=== PATIENT | female | born 1950 | race Caucasian/White ===

== ENCOUNTER 2016-11-15 21:29 | Inpatient (IN) | payer MEDICARE ==
[~2016-11-15] VITALS: Ht 165.1 cm; Wt 75.4 kg
[2016-11-15 21:29] VITALS: O2SAT 99
[2016-11-15] MEDS ORDERED: PROPOFOL 200 MG/20 ML AMP ONE (21:37)
[2016-11-15 21:59] LABS: AUTOMATED NEUTROPHIL # 2.9 TH/MM3 (1.8-7.7); BASOPHIL # 0.1 TH/MM3 (0-0.2); BASOPHIL % 1.2 % (0.0-2.0); EOSINOPHIL # 0.5 TH/MM3 (0-0.4); EOSINOPHIL % 9.3 % (0.0-4.0); HEMATOCRIT 32.1 % (35.0-46.0); HEMO FLAGS DIFF FINAL; LYMPHOCYTE # 1.6 TH/MM3 (1.0-4.8); MEAN CELL VOLUME 86.3 FL (80.0-100.0); MEAN CORPUSCULAR HEMOGLOBIN 26.8 PG (27.0-34.0); MEAN CORPUSCULAR HGB CONC 31.1 % (32.0-36.0); NEUT % 51.5 % (16.0-70.0); PLATELET COUNT 283 TH/MM3 (150-450); RED BLOOD COUNT 3.72 MIL/MM3 (4.00-5.30); RED CELL DISTRIBUTION WIDTH 20.3 % (11.6-17.2); WHITE BLOOD COUNT 5.6 TH/MM3 (4.0-11.0)
[2016-11-15] MEDS ORDERED: SODIUM CHLOR 0.9% 1000 ML INJ 1,000 ML IV SCH (22:08)
[2016-11-15 22:10] LABS: I-STAT POTASSIUM 3.8 MMOL/L (3.5-4.9)
[2016-11-15] MEDS ORDERED: ONDANSETRON HCL 4 MG/2 ML VIAL IV PRN (22:15)
[2016-11-15] MEDS ORDERED: Post-op Orders (for Pharmacy) MISC XX ONE (22:15)
[2016-11-15] MEDS ORDERED: NALOXONE HCL 0.4 MG/ML AMP IV PRN (22:15)
[2016-11-15] MEDS ORDERED: SODIUM CHLORIDE 0.9% FLUSH 10 ML FLUSH IV FLUSH PRN (22:15)
[2016-11-15] MEDS ORDERED: MORPHINE SULFATE 4 MG/ML INJ IV PRN (22:15)
--- NOTE | 2016-11-15 22:23 | PD ---
HPI Chief Complaint: Trauma (Alert) Time Seen by Provider: 21:40 Travel History International Travel<30 days: No Contact w/Intl Traveler<30days: No History of Present Illness HPI The patient is 62 years old. She arrives to the ER as a trauma alert. She fell from a step stool and her house following about 2 feet landing on the left side causing sudden onset severe pain in the left wrist and in the left hip. EMS on scene saw deformity which was immobilized. Therefore vital signs on scene is 150/80, heart rate 54, respiratory rate 24 with a blood sugar of 131. In the ER the patient complains of pain in the left forearm and pain in the left hip. She reports a history of palpitations, insomnia, GBP, anemia. She notes taking her Lortab, Klonopin and Keppra earlier in the evening. She also notes IM methotrexate once weekly, however is not sure of its specific indication. Allergies-Medications (Allergen,Severity, Reaction): Coded Allergies: No Known Allergies (Unverified , 11/16/16) Reported Meds & Prescriptions Reported Meds & Active Scripts Active Reported Ambien (Zolpidem Tartrate) 10 Mg Tab 10 Mg PO HS PRN Singulair (Montelukast Sodium) 10 Mg Tab 10 Mg PO DAILY Lortab (Hydrocodone-Acetaminophen) 10-325 Mg Tab 1 Tab PO TID PRN Cymbalta DR (Duloxetine HCl) 60 Mg Capdr 60 Mg PO DAILY Keppra (Levetiracetam) 500 Mg Tab 500 Mg PO BID Propranolol (Propranolol HCl) 20 Mg Tab 20 Mg PO BID Multi Vitamin (Multiple Vitamin) 1 Tab Tab 1 Tab PO DAILY Folate (Folic Acid) 1 Mg Tab 1 Mg PO SUMOTUWEFRSA Otrexup Inj (Methotrexate Inj) 7.5 Mg/0.4 Ml Inj 2.5 Mg IM WEEKLY ON THURSDAYS Omeprazole 20 Mg Tab 20 Mg PO BID Clonazepam 1 Mg Tab 1 Mg PO TID Review of Systems ROS Limitations: Clinical Condition Physical Exam Narrative GENERAL: 66 yo F, WNWD, moderate distress SKIN: Warm and dry. HEAD: Atraumatic. Normocephalic. EYES: Pupils equal and round. No scleral icterus. No injection or drainage. ENT: No nasal bleeding or discharge. Mucous membranes pink and moist. NECK: Trachea midline. No JVD. CARDIOVASCULAR: Regular rate and rhythm. RESPIRATORY: No accessory muscle use. Clear to auscultation. Breath sounds equal bilaterally. GASTROINTESTINAL: Abdomen soft, non-tender, nondistended. Hepatic and splenic margins not palpable. MUSCULOSKELETAL: Extremities without clubbing, cyanosis, or edema. Deformity of the left wrist concerning for distal radius fracture. The left lower extremity is externally rotated with TTP. 2+ DP bilaterally. 2+ radial artery pulses bilaterally. NEUROLOGICAL: Awake and alert. No obvious cranial nerve deficits. Motor grossly within normal limits. Extremity exam limited by trauma. Normal speech. PSYCHIATRIC: Reasonably cooperative. Data Data Last Documented VS Vital Signs Date Time Temp Pulse Resp B/P Pulse Ox O2 Delivery O2 Flow Rate FiO2 11/15/16 21:29 99 15.00 100 Orders Propofol 200 Mg/20 Ml Inj (Diprivan 200 (11/15/16 21:37) I-Stat Profile (11/15/16 21:40) I-Stat Creatinine (11/15/16 21:40) Complete Blood Count With Diff (11/15/16 21:40) Prothrombin Time / Inr (Pt) (11/15/16 21:40) Act Partial Throm Time (Ptt) (11/15/16 21:40) Type And Screen (11/15/16 21:40) Chest, Single Ap (11/15/16 21:40) Pelvis, Ap Only (Routine) (11/15/16 21:40) Iv Access Insert/Monitor (11/15/16 21:40) Ecg Monitoring (11/15/16 21:40) Oximetry (11/15/16 21:40) Oxygen Administration (11/15/16 21:40) Wrist, Limited (Ap&Lat) (11/15/16 ) Femur (Ap & Lat/2vws) (11/15/16 ) Wrist, Limited (Ap&Lat) (11/15/16 ) Elbow, One View (11/15/16 ) Admit To Inpatient (11/15/16 ) Code Status (11/15/16 22:08) Vital Signs (Adult) Q4H (11/15/16 22:08) Activity Bed Rest (11/15/16 22:08) Diet Npo (11/16/16 Breakfast) Sodium Chlor 0.9% 1000 Ml Inj (Ns 1000 M (11/15/16 22:08) Sodium Chloride 0.9% Flush (Ns Flush) (11/15/16 22:15) Sodium Chloride 0.9% Flush (Ns Flush) (11/16/16 09:00) Ondansetron Inj (Zofran Inj) (11/15/16 22:15) Pantoprazole Inj (Protonix Inj) (11/15/16 22:15) Basic Metabolic Panel (Bmp) (11/16/16 06:00) Complete Blood Count With Diff (11/16/16 06:00) Resp Incentive Spirometry (11/15/16 ) Consult Hospitalist (11/15/16 ) Post-Op Orders (For Pharmacy) (Post-Op O (11/15/16 22:15) Morphine Inj (Morphine Inj) (11/15/16 22:15) Naloxone Inj (Narcan Inj) (11/15/16 22:15) Inpatient Certification (11/15/16 ) Consult Orthopedic (11/15/16 ) Sling Cradle Arm (11/15/16 ) Fiberglass Sugartong Sp Ad Arm (11/15/16 ) Immobilizer Knee 20 Inch (11/15/16 ) Admit Order (Ed Use Only) (11/15/16 22:20) Labs Laboratory Tests Test 11/15/16 21:38 White Blood Count 5.6 TH/MM3 Red Blood Count 3.72 MIL/MM3 Hemoglobin 10.0 GM/DL Bedside Hemoglobin 10.5 G/DL Hematocrit 32.1 % Bedside Hematocrit 31.0 % Mean Corpuscular Volume 86.3 FL Mean Corpuscular Hemoglobin 26.8 PG Mean Corpuscular Hemoglobin 31.1 % Concent Red Cell Distribution Width 20.3 % Platelet Count 283 TH/MM3 Mean Platelet Volume 8.2 FL Neutrophils (%) (Auto) 51.5 % Lymphocytes (%) (Auto) 29.0 % Monocytes (%) (Auto) 9.0 % Eosinophils (%) (Auto) 9.3 % Basophils (%) (Auto) 1.2 % Neutrophils # (Auto) 2.9 TH/MM3 Lymphocytes # (Auto) 1.6 TH/MM3 Monocytes # (Auto) 0.5 TH/MM3 Eosinophils # (Auto) 0.5 TH/MM3 Basophils # (Auto) 0.1 TH/MM3 CBC Comment DIFF FINAL Differential Comment Prothrombin Time 11.1 SEC Prothromb Time International 1.0 RATIO Ratio Activated Partial 23.4 SEC Thromboplast Time Bedside Sodium 143 MMOL/L Bedside Potassium 3.8 MMOL/L Bedside Chloride 108 MMOL/L Bedside Blood Urea Nitrogen 19 MG/DL Bedside Creatinine 0.8 MG/DL Bedside Glucose 103 MG/DL Blood Type AB POSITIVE Antibody Screen NEGATIVE [facility] Medical Screen Exam Complete: Yes Emergency Medical Condition: Yes Differential Diagnosis Rib fracture, pneumothorax, wrist fracture, femur fracture, humerus fracture Narrative Course CBC & BMP Diagram 11/15/16 21:38 POC electrolytes are normal Last 24 hours Impressions Pelvis X-Ray 11/15/162139 Signed Impressions: Service Date/Time: Tuesday, November 15, 2016 21:23 - CONCLUSION: Intact pelvis. Aman Avendano MD Chest X-Ray 11/15/162139 Signed Impressions: Service Date/Time: Tuesday, November 15, 2016 21:23 - CONCLUSION: No evidence of acute cardiopulmonary disease. Aman Avendano MD Wrist X-Ray 11/15/16 0000 Signed Impressions: Service Date/Time: Tuesday, November 15, 2016 21:23 - CONCLUSION: Comminuted, impacted and mild dorsal angulated intra-articular fracture of the distal left radius. Aman Avendano MD Wrist X-Ray 11/15/16 0000 Signed Impressions: Service Date/Time: Tuesday, November 15, 2016 21:23 - CONCLUSION: Comminuted, impacted intra-articular fracture of the distal left radius with dorsal displacement and angulation deformity. Aman Avendano MD Femur X-Ray 11/15/16 0000 Signed Impressions: Service Date/Time: Tuesday, November 15, 2016 21:23 - CONCLUSION: Comminuted minimally displaced intertrochanteric fracture. Aman Avendano MD Elbow X-Ray 11/15/16 0000 Signed Impressions: Service Date/Time: Tuesday, November 15, 2016 21:23 - CONCLUSION: Nondisplaced fracture of the distal humerus not excludable. Dedicated complete elbow x-ray series recommended when clinically feasible. Aman Avendano MD Patient reassessed in the echo pod following trauma bay evaluation. She remains hemodynamically stable. She'll be admitted to the trauma surgery service. The son does not recall the doses of the medications the patient takes hour she reports following from memory: Dirk Dodge, Rebecca, Keppra, methotrexate IM once weekly, B12 and iron, propranolol. Case discussed with Dr. Locke of orthopedic surgery who requests nothing by mouth status. Procedures Procedure Narrative After the risks and benefits were discussed the following procedure was performed: MODERATE SEDATION: The patient was placed on a roll up guider operator and pulse oximetry. An ambu bag and suction was immediately available at bedside. The patient was monitored by the nurse. Oxygen saturation , heart rate and blood pressure were monitored. Procedural sedation was acheived using propofol. The patient was observed until awake and alert. Procedural Sedation time in attendance was 15 minutes. CLOSED REDUCTION L DISTAL RADIUS FRACTURE: Traction countertraction applied. 2+ radial artery before and after. Sugar tong applied. Post reduction film with improved alignment. Trauma Alert - Level One Time Surgeon Summoned: 21:22 Diagnosis Diagnosis: Primary Impression: Intertrochanteric fracture of left hip Qualified Code: S72.142A - Intertrochanteric fracture of left hip, closed, initial encounter Additional Impression: Distal radius fracture, left Qualified Code: S52.502A - Closed fracture of distal end of left radius, unspecified fracture morphology, initial encounter Admitting Physician Requests: Admit Landon Tucker MD November 15, 2016 22:22
--- NOTE | 2016-11-15 22:25 | RADRPT ---
EXAM DATE/TIME: 11/15/2016 21:23 [facility] COMPARISON: No previous studies available for comparison. INDICATIONS : Trauma alert. Fall onto concrete. Post reduction. MEDICAL HISTORY : None. SURGICAL HISTORY : None. ENCOUNTER: Initial ACUITY: 1 day PAIN SCORE: Non-responsive. LOCATION: Left wrist. FINDINGS: There is a comminuted, impacted intra-articular fracture of the distal left radius. Mild dorsal angul ation deformity and a few millimeters of lateral displacement noted. Carpal bones appear intact and n ormally aligned. There is potentially a minimally displaced fracture of the ulnar styloid. CONCLUSION: Comminuted, impacted and mild dorsal angulated intra-articular fracture of the distal left radius. Aman Avendano MD on November 15, 2016 at 22:23 Board Certified Radiologist. This report was verified electronically.
--- NOTE | 2016-11-15 22:25 | RADRPT ---
EXAM DATE/TIME: 11/15/2016 21:23 [facility] COMPARISON: No previous studies available for comparison. INDICATIONS : Trauma alert. Fall onto concrete. MEDICAL HISTORY : None. SURGICAL HISTORY : None. ENCOUNTER: Initial ACUITY: 1 day PAIN SCORE: Non-responsive. LOCATION: Bilateral chest FINDINGS: A single view of the chest demonstrates the lungs to be symmetrically aerated without evidence of mas s, infiltrate or effusion. The cardiomediastinal contours are unremarkable. Osseous structures are intact. CONCLUSION: No evidence of acute cardiopulmonary disease. Aman Avendano MD on November 15, 2016 at 22:24 Board Certified Radiologist. This report was verified electronically.
--- NOTE | 2016-11-15 22:27 | RADRPT ---
EXAM DATE/TIME: 11/15/2016 21:23 [facility] COMPARISON: No previous studies available for comparison. INDICATIONS : Trauma alert. Fall onto concrete. MEDICAL HISTORY : None. SURGICAL HISTORY : None. ENCOUNTER: Initial ACUITY: 1 day PAIN SCORE: Non-responsive. LOCATION: Left elbow. FINDINGS: A single view was obtained. There is a potential nondisplaced condylar fracture of the distal humerus . Grossly, proximal radius and ulna appear intact. CONCLUSION: Nondisplaced fracture of the distal humerus not excludable. Dedicated complete elbow x-ray series rec ommended when clinically feasible. Aman Avendano MD on November 15, 2016 at 22:24 Board Certified Radiologist. This report was verified electronically.
--- NOTE | 2016-11-15 22:28 | RADRPT ---
EXAM DATE/TIME: 11/15/2016 21:23 [facility] COMPARISON: No previous studies available for comparison. INDICATIONS : Trauma alert. Fall onto concrete. MEDICAL HISTORY : None. SURGICAL HISTORY : None. ENCOUNTER: Initial ACUITY: 1 day PAIN SCORE: Non-responsive. LOCATION: Bilateral pelvis FINDINGS: A single frontal view of the pelvis demonstrates no evidence of fracture. The bony pelvic ring is in tact. Bony mineralization is normal. The soft tissues are intact. CONCLUSION: Intact pelvis. Aman Avendano MD on November 15, 2016 at 22:26 Board Certified Radiologist. This report was verified electronically.
--- NOTE | 2016-11-15 22:29 | RADRPT ---
EXAM DATE/TIME: 11/15/2016 21:23 [facility] COMPARISON: No previous studies available for comparison. INDICATIONS : Trauma alert. Fall onto concrete. MEDICAL HISTORY : None. SURGICAL HISTORY : None. ENCOUNTER: Initial ACUITY: 1 day PAIN SCORE: Non-responsive. LOCATION: Left wrist. FINDINGS: Very comminuted, impacted and dorsally displaced and angulated fracture seen of the distal left radiu s. There is a minimally displaced fracture of the ulnar styloid. Carpal bones appear intact. CONCLUSION: Comminuted, impacted intra-articular fracture of the distal left radius with dorsal displacement and angulation deformity. Aman Avendano MD on November 15, 2016 at 22:27 Board Certified Radiologist. This report was verified electronically.
--- NOTE | 2016-11-15 22:30 | RADRPT ---
EXAM DATE/TIME: 11/15/2016 21:23 [facility] COMPARISON: No previous studies available for comparison. INDICATIONS : Trauma alert. Fall onto concrete. MEDICAL HISTORY : None. SURGICAL HISTORY : None. ENCOUNTER: Initial ACUITY: 1 day PAIN SCORE: Non-responsive. LOCATION: Left femur. FINDINGS: Very comminuted but minimally displaced fracture seen in the intertrochanteric region of the left fem ur. Femoral head is intact. No subluxation. CONCLUSION: Comminuted minimally displaced intertrochanteric fracture. Aman Avendano MD on November 15, 2016 at 22:28 Board Certified Radiologist. This report was verified electronically.
[2016-11-15 22:33] LABS: APTT (PATIENT) 23.4 SEC (24.3-30.1); PROTHROMBIN TIME - PATIENT 11.1 SEC (9.8-11.6)
[2016-11-15] MEDS ORDERED: [UNRECOGNIZED DRUG - CODE] IM (23:26)
[2016-11-15] MEDS ORDERED: CLON1TAB PO (23:26)
[2016-11-15] MEDS ORDERED: OMEP20TA PO (23:26)
[2016-11-15] MEDS ORDERED: FOLI1TAB4 PO (23:26)
[2016-11-15] MEDS ORDERED: MULT-135 PO (23:27)
[2016-11-15] MEDS ORDERED: HYDR-3535 PO (23:44)
[2016-11-15] MEDS ORDERED: LEVE500 PO (23:44)
[2016-11-15] MEDS ORDERED: AMBI10TA PO (23:44)
[2016-11-15] MEDS ORDERED: MONT10TA2 PO (23:44)
[2016-11-15] MEDS ORDERED: CYMB60CA PO (23:44)
[2016-11-15] MEDS ORDERED: PROP20TA3 PO (23:44)
[2016-11-16] VITALS (8 sets, daily range): BP systolic 129–174; BP diastolic 75–99; PULSE 61–77; RESP 17–19; TEMP 95.5–99.6; O2SAT 97–100
[2016-11-16] MEDS ORDERED: INSULIN HUMAN REGULAR 1,000 UNITS/10 ML VIAL SQ PRN (01:15)
[2016-11-16] MEDS ORDERED: CHLORHEXIDINE GLUCONATE 2 % 1 PACK (2 CLOTHS) TOPICAL PRN (01:15)
[2016-11-16] MEDS ORDERED: METOPROLOL TARTRATE 25 MG TAB PO PRN (01:15)
[2016-11-16] MEDS ORDERED: LACTATED RINGER'S 1000 ML IV PRN (01:15)
[2016-11-16] MEDS ORDERED: POVIDONE IODINE 5% (ANTISEPSIS KIT) 4 APPLICATIONS EACH NARE PRN (01:15)
[2016-11-16 05:29] LABS: AUTOMATED NEUTROPHIL # 5.2 TH/MM3 (1.8-7.7); BASOPHIL # 0.1 TH/MM3 (0-0.2); BASOPHIL % 0.8 % (0.0-2.0); EOSINOPHIL # 0.2 TH/MM3 (0-0.4); EOSINOPHIL % 2.6 % (0.0-4.0); HEMATOCRIT 29.1 % (35.0-46.0); HEMO FLAGS DIFF FINAL; LYMPH % 17.4 % (9.0-44.0); LYMPHOCYTE # 1.3 TH/MM3 (1.0-4.8); MEAN CELL VOLUME 84.9 FL (80.0-100.0); MEAN CORPUSCULAR HEMOGLOBIN 29.2 PG (27.0-34.0); MEAN CORPUSCULAR HGB CONC 34.4 % (32.0-36.0); MONO % 8.1 % (0.0-8.0); NEUT % 71.1 % (16.0-70.0); PLATELET COUNT 277 TH/MM3 (150-450); RED BLOOD COUNT 3.42 MIL/MM3 (4.00-5.30); RED CELL DISTRIBUTION WIDTH 20.4 % (11.6-17.2); WHITE BLOOD COUNT 7.4 TH/MM3 (4.0-11.0)
[2016-11-16 05:38] LABS: BICARBONATE 24.9 MEQ/L (21.0-32.0)
[2016-11-16] MEDS ORDERED: GENTAMICIN SULFATE 80 MG/2 ML VIAL ONE ×2 (08:51→09:49)
[2016-11-16] MEDS ORDERED: BUPIVACAINE/EPINEPHRINE 0.25% PF 30 ML VIAL ONE (08:56)
[2016-11-16] MEDS ORDERED: BUPIVACAINE/EPINEPHRINE 0.25% 50 ML VIAL ONE (08:56)
[2016-11-16] MEDS ORDERED: DOCUSATE SODIUM 100 MG CAP PO SCH (09:00)
--- NOTE | 2016-11-16 09:06 | MB ---
cc: MIRIAM JOSHUA DATE OF CONSULTATION: 11/16/2016 REASON FOR CONSULTATION: Left distal radius fracture Left hip fracture. HISTORY The patient is 62-year-old female brought to the emergency room [facility] Trauma alert patient. She fell off a step stool in her house, landing on left thigh with severe onset of sudden pain left hip, left wrist. 911 was called, Emergency Medical Services at the scene saw a deformity of both areas and she was immobilized. She was taken [facility] and she was severe pain in both areas with any movement or attempted weightbearing exacerbates the symptoms of both left wrist and left hip region. She did report palpitations. She denies numbness, tingling. She had x-rays performed. DIAGNOSIS Left distal radius fracture, left intertrochanteric hip fracture with the surgery consulted and the medical service. PAST MEDICAL HISTORY: The patient has past medical history of rheumatoid arthritis. Seizure disorder. History of gastric bypass. ALLERGIES NO KNOWN DRUG ALLERGIES MEDICATIONS Medications include 1. Methotrexate 2. Ambien 3. Singulair. 4. Lortab 5. Cymbalta 6. Keppra 7. Propranolol 8. Multivitamin. 9. Omeprazole. 10. Clonazepam SOCIAL HISTORY: nonsmoker, nondrinker. REVIEW OF SYSTEMS Negative for 12 systems other than HPI. FAMILY HISTORY: Noncontributory. PHYSICAL EXAMINATION: IN GENERAL: The patient is awake and alert lying in bed, no acute distress currently. HEAD, EYES, EARS, NOSE, AND THROAT: Normocephalic, atraumatic. Pupils round, extraocular muscles intact. NECK: The neck is supple. LUNGS: Clear. HEART: Regular rate and rhythm. ABDOMEN: The abdomen is soft, nontender. SKIN: Warm and dry. EXTREMITIES: Left upper extremities currently splinted. She has pain, swelling of left wrist tenderness in this region. She flexes her digits with pain limitation regards to her condition. The patient left hip. She has shortening and external rotation. She can passive flex her ankle distally, she has pain with any passive motion of the left hip. LABORATORY FINDINGS: White blood cell count 5.6, hemoglobin is ten, hematocrit is 32, RADIOLOGIC: X-rays of the left wrist shows a comminuted displaced intra-articular impacted distal radius fracture. X-rays of the left hip shows comminuted displaced intertrochanteric hip fracture. IMPRESSION 62-year-old female status post fall from a height left intertrochanteric hip fracture left distal wrist fracture. PLAN Discussed diagnosis and treatment options, we will go over the option of nonoperative treatment versus surgery. Surgery consists of open reduction internal fixation of both the left hip and left wrist. The risk of surgery discussed including but no limited to infection, damage to blood vessels, pain, failure of hardware, blood clots, pulmonary embolism and . The patient's pain is severe. She favored benefits of the risks, it does wish to proceed with surgery. A written consent will be obtained, the surgical sites have been marked and we will proceed with surgery accordingly. MD SERAFIN Vega/patti /7:57 AM /8:58 AM
[2016-11-16] MEDS ORDERED: VANCOMYCIN HCL 1000 MG VIAL ONE (09:49)
[2016-11-16] MEDS ORDERED: ceFAZolin 2 GM PREMIX 50 ML ONE (09:49)
[2016-11-16] MEDS ORDERED: ONDANSETRON HCL 4 MG/2 ML VIAL IV PUSH ONE (09:54)
[2016-11-16] MEDS ORDERED: NEOSTIGMINE 3 MG/3 ML SYR IV ONE (09:54)
[2016-11-16] MEDS ORDERED: PROPOFOL 200 MG/20 ML AMP IV ONE (09:54)
[2016-11-16] MEDS ORDERED: SODIUM CHLOR 0.9% 250 ML INJ 250 ML IV ONE (09:55)
--- NOTE | 2016-11-16 09:58 | HHI.PR ---
Subjective Subjective Notes PTD: 1 1030: In OR 1200: In OR / PACU 1445: Back from OR - sleepy and groggy post OR. Objective Vitals/I&O Vital Signs Date Time Temp Pulse Resp B/P Pulse Ox O2 Delivery O2 Flow Rate FiO2 11/16/16 04:00 98.3 74 17 135/75 98 11/15/16 21:29 15.00 100 Labs Laboratory Tests Test 11/15/16 11/16/16 21:38 03:52 White Blood Count 5.6 7.4 Red Blood Count 3.72 3.42 Hemoglobin 10.0 10.0 Bedside Hemoglobin 10.5 Hematocrit 32.1 29.1 Bedside Hematocrit 31.0 Mean Corpuscular Volume 86.3 84.9 Mean Corpuscular Hemoglobin 26.8 29.2 Mean Corpuscular Hemoglobin 31.1 34.4 Concent Red Cell Distribution Width 20.3 20.4 Platelet Count 283 277 Mean Platelet Volume 8.2 8.3 Neutrophils (%) (Auto) 51.5 71.1 Lymphocytes (%) (Auto) 29.0 17.4 Monocytes (%) (Auto) 9.0 8.1 Eosinophils (%) (Auto) 9.3 2.6 Basophils (%) (Auto) 1.2 0.8 Neutrophils # (Auto) 2.9 5.2 Lymphocytes # (Auto) 1.6 1.3 Monocytes # (Auto) 0.5 0.6 Eosinophils # (Auto) 0.5 0.2 Basophils # (Auto) 0.1 0.1 CBC Comment DIFF FINAL DIFF FINAL Differential Comment Prothrombin Time 11.1 Prothromb Time International 1.0 Ratio Activated Partial 23.4 Thromboplast Time Bedside Sodium 143 Bedside Potassium 3.8 Bedside Chloride 108 Bedside Blood Urea Nitrogen 19 Bedside Creatinine 0.8 Bedside Glucose 103 Blood Type AB POSITIVE Antibody Screen NEGATIVE Sodium Level 145 Potassium Level 4.0 Chloride Level 111 Carbon Dioxide Level 24.9 Anion Gap 9 Blood Urea Nitrogen 13 Creatinine 0.57 Estimat Glomerular Filtration 91 Rate Random Glucose 100 Calcium Level 8.2 Radiology Last Impressions Pelvis X-Ray 11/15/162139 Signed Impressions: Service Date/Time: Tuesday, November 15, 2016 21:23 - CONCLUSION: Intact pelvis. Aman Avendano MD Chest X-Ray 11/15/162139 Signed Impressions: Service Date/Time: Tuesday, November 15, 2016 21:23 - CONCLUSION: No evidence of acute cardiopulmonary disease. Aman Avendano MD Wrist X-Ray 11/15/16 0000 Signed Impressions: Service Date/Time: Tuesday, November 15, 2016 21:23 - CONCLUSION: Comminuted, impacted and mild dorsal angulated intra-articular fracture of the distal left radius. Aman Avendano MD Femur X-Ray 11/15/16 0000 Signed Impressions: Service Date/Time: Tuesday, November 15, 2016 21:23 - CONCLUSION: Comminuted minimally displaced intertrochanteric fracture. Aman Avendano MD Elbow X-Ray 11/15/16 0000 Signed Impressions: Service Date/Time: Tuesday, November 15, 2016 21:23 - CONCLUSION: Nondisplaced fracture of the distal humerus not excludable. Dedicated complete elbow x-ray series recommended when clinically feasible. Aman Avendano MD Narrative Exam GENERAL: This is a 70 year old female just back from OR and still sleepy. SKIN: Warm and dry. HEAD: Atraumatic. Normocephalic. EYES: PERRLA ENT: No nasal bleeding or discharge. Mucous membranes pink and moist. NECK: Trachea midline. No JVD. CARDIOVASCULAR: Regular rate and rhythm. RESPIRATORY: No accessory muscle use. Lungs are clear to auscultation. Breath sounds equal bilaterally. No distress or dyspnea. GASTROINTESTINAL: BS + x 4 quads. Abdomen soft, non-tender, nondistended. MUSCULOSKELETAL: Extremities without cyanosis, or edema. LEFT arm dressing in place and arm in sling for support/comfort. + peripheral pulses x 4 extremities. Warm with good capillary refill and sensation. MAEW. LEFT outer hip/thigh dressing in place CDI. NEUROLOGICAL: Drowsy post OR A/P Problem List: (1) Distal radius fracture, left (2) Intertrochanteric fracture of left hip Assessment and Plan RESIGHINI: This is a 62 year old female who sustained a fall from a stepstool of approximately 2 feet. She landed on her left side. PMHx: Palpitations, HTN. insomnia, anemia, Smoker INJURIES: Left radius fracture Left femur fracture Procedures: 11/15: Closed reduction of distal radius in ED 11/16: ORIF left radius; ORIF IM nail left femur Consults: Orthopedics.HEPAS. Diet: Regular diet. Tolerating po diet. Encourage good po intake with each meal. Pulmonary: Encourage good pulmonary toileting. IS at bedside and pt encouraged to use. Rationale for use explained to patient, and verbalized understanding. Resume home medications. Labs in the morning. PAIN Management: [place] 7.5-15 po. Dilaudid PRN breakthrough pain. Morphine IV Activity: BR. PT and OT ordered. GI prophylaxis: Protonix IV Bowel regimen: Lexie-colace and MOM. LBM: 0 DVT prophylaxis: Mechanical VTE with SCDs. Chemical management with Lovenox 30 q day. DC Planning: Case management consulted for assistance with final discharge disposition. Emotional support provided to patient and family at bedside and plan of care discussed. Discussed with RN at bedside. Patient is hemodynamically stable and being managed on the med/surg floor. - LEFT radius fracture - LEFT femur fracture Consulted orthopedics for assistance with management and care 11/15: Closed reduction of distal radius in ED 11/16 ORIF left radius; ORIF IM nail left femur Dressing CDI, and maintain as per orthopedics recommendations Pain control - [place], Dilaudid PRN PT and OT ordered Awaiting official weightbearing status from orthopedics Problem Qualifiers (1) Distal radius fracture, left: Qualified Code: S52.502A - Closed fracture of distal end of left radius, unspecified fracture morphology, initial encounter (2) Intertrochanteric fracture of left hip: Qualified Code: S72.142A - Intertrochanteric fracture of left hip, closed, initial encounter Shakila Jacome November 16, 2016 09:58
[2016-11-16] MEDS ORDERED: DEXT 5%-NACL 0.45% 1000 ML INJ 1,000 ML IV SCH (11:02)
[2016-11-16] MEDS ORDERED: HYDR-3288 PO (11:11)
[2016-11-16] MEDS ORDERED: ENOX30P SQ (11:12)
[2016-11-16] MEDS ORDERED: ASPI81CH37 CHEW (11:12)
[2016-11-16] MEDS ORDERED: MISCELLANEOUS PHARMACY INFORMATION XX ONE ×2 (11:15)
[2016-11-16] MEDS ORDERED: ONDANSETRON HCL 4 MG/2 ML VIAL IVP PRN ×2 (11:15)
[2016-11-16] MEDS ORDERED: Post-op Orders (for Pharmacy) MISC XX ONE ×2 (11:15)
[2016-11-16] MEDS ORDERED: ACETAMINOPHEN/HYDROcodone 325 MG/7.5 MG TAB PO PRN ×2 (11:15)
[2016-11-16] MEDS ORDERED: MISCELLANEOUS NURSING INFORMATION XX PRN ×2 (11:15)
[2016-11-16] MEDS ORDERED: MORPHINE SULFATE 4 MG/ML INJ IV PUSH PRN (11:15)
[2016-11-16] MEDS ORDERED: MAGNESIUM HYDROXIDE SUSP 30 ML CUP PO PRN (11:15)
[2016-11-16] MEDS ORDERED: HYDROmorphone HCL PF 2 MG/ML VIAL IV PRN (11:15)
[2016-11-16] MEDS ORDERED: NALOXONE HCL 0.4 MG/ML AMP IV PRN ×2 (11:15)
[2016-11-16] MEDS ORDERED: diphenhydrAMINE HCL 25 MG CAP PO PRN ×2 (11:15)
[2016-11-16] MEDS ORDERED: ENOXAPARIN SODIUM 30 MG/0.3 ML SYRINGE SQ SCH (11:15)
[2016-11-16] MEDS ORDERED: SODIUM CHLORIDE 0.9% FLUSH 5 ML FLUSH IVF PRN ×2 (11:15)
--- NOTE | 2016-11-16 11:30 | MH ---
cc: CLINT WRIGHT MD DATE OF ADMISSION: 11/15/2016 HISTORY OF PRESENT DISEASE A 62-year-old female who fell from a standing position and was called as a priority-1 trauma alert from the field and was downgraded to a priority-2 alert. She fell on her left side, broke her hip, called 911. On arrival the patient is in severe pain, complaining of pain in her wrist and hip. There is slight foreshortening of the left leg. PAST MEDICAL HISTORY 1. Obesity. 2. Seizures. 3. Rheumatoid arthritis. PAST SURGICAL HISTORY Gastric bypass surgery. ALLERGIES No allergies. MEDICATIONS Medications were not available immediately but now are includin. Methotrexate. 2. Cymbalta. 3. Keppra. 4. Clonazepam. 5. Propranolol. SOCIAL HISTORY The patient does not smoke or drink. REVIEW OF SYSTEMS Normal except for above-noted. PHYSICAL EXAMINATION GENERAL: A 62-year-old female in moderate distress due to pain. HEENT: Normocephalic. No trauma to the head. Pupils equally reactive. Extraocular muscles intact. No hemotympanum. No Carreon's sign. No raccoon eyes. NECK: The neck is examined by removing the C-collar. The patient has no neck tenderness and the C-collar is removed. CHEST: Bilateral breath sounds. HEART: Regular rhythm. The patient is normotensive, hemodynamically intact. ABDOMEN: Soft. Active bowel sounds. No rebound. No guarding. No masses. EXTREMITIES: The patient has bilateral femoral, popliteal, dorsalis pedis and posterior tibial pulses, bilateral radial, ulnar and brachial pulses. Splint is applied to the left upper extremity and there is clearly wrist swelling and tenderness. The patient has normal motoric range of motion which is limited obviously by pain. The left leg is externally rotated and slightly foreshortened consistent with a left intertrochanteric femur fracture. She is very tender here. The [place] Coma Scale is 15. Motor and sensory intact except for the above-noted limitations due to the fractures. IMPRESSION AND RECOMMENDATIONS Patient with left intertrochanteric femur fracture and left ulnar radius fracture. Both are closed fractures. Orthopedics has been consulted. The patient will be staying on bedrest and will probably undergo tomorrow ORIF of both fractures. Lawrencebojeremias MENDENHALL 11:07 AM /11:21 AM
[2016-11-16] MEDS ORDERED: fentaNYL CITRATE 250 MCG/5 ML AMP ONE (12:42)
--- NOTE | 2016-11-16 12:42 | PD.CONS ---
HPI Service [facility] Consult Requested By Dr. Ramachandran from trauma surgery Reason for Consult Medical comanagement Primary Care Physician Unknown Diagnoses: History of Present Illness This is a 62-year-old female, obese with history of rheumatoid or try this, fell from a standing position and was called as a TRAUMA ALERT. Upon arrival at the hospital, the patient is complaining of pain in her wrist and hip. She was found to have left distal radius fracture and left intertrochanteric hip fracture. Orthopedics saw the patient after consultation and proceeded with left wrist and left hip ORIF. We were consulted for medical comanagement. Patient seen postoperatively, she is sleepy but oriented. No complaints. Denies any shortness of breath or chest pain. Review of Systems ROS Limitations: Other (All other pertinent systems were reviewed and are negative.) Past Family Social History Allergies: Coded Allergies: No Known Allergies (Unverified , 11/16/16) Past Medical History 1. Obesity. 2. Seizures. 3. Rheumatoid arthritis. 4.? Hypertension Past Surgical History Gastric bypass surgery. Reported Medications Aspirin Low Dose (Aspirin) 81 Mg Chew 81 Mg CHEW BID PRN Lovenox Inj (Enoxaparin Sodium) 30 Mg/0.3 Ml Syr 30 Mg SQ DAILY Gallina (Hydrocodone-Acetaminophen) 7.5-325 mg Tab 1-2 Tab PO Q6H PRN Ambien (Zolpidem Tartrate) 10 Mg Tab 10 Mg PO HS PRN Singulair (Montelukast Sodium) 10 Mg Tab 10 Mg PO DAILY Lortab (Hydrocodone-Acetaminophen) 10-325 Mg Tab 1 Tab PO TID PRN Cymbalta DR (Duloxetine HCl) 60 Mg Capdr 60 Mg PO DAILY Keppra (Levetiracetam) 500 Mg Tab 500 Mg PO BID Propranolol (Propranolol HCl) 20 Mg Tab 20 Mg PO BID Multi Vitamin (Multiple Vitamin) 1 Tab Tab 1 Tab PO DAILY Folate (Folic Acid) 1 Mg Tab 1 Mg PO SUMOTUWEFRSA Otrexup Inj (Methotrexate Inj) 7.5 Mg/0.4 Ml Inj 2.5 Mg IM WEEKLY ON THURSDAYS Omeprazole 20 Mg Tab 20 Mg PO BID Clonazepam 1 Mg Tab 1 Mg PO TID Family History No history of hypertension the family Social History Smokes less than a pack a day for about 40 years. Physical Exam Vital Signs Vital Signs Date Time Temp Pulse Resp B/P Pulse Ox O2 Delivery O2 Flow Rate FiO2 11/16/16 08:00 99.6 77 18 129/82 97 11/16/16 04:00 98.3 74 17 135/75 98 11/16/16 02:13 71 11/16/16 00:58 97.8 73 19 159/99 99 11/15/16 21:29 99 15.00 100 Physical Exam Not in distress, well-nourished, looks stated age PERRL, pink conjunctiva without injection, anicteric Nose without bleeding, airway patent, oropharynx clear Supple neck, no masses or thyromegaly, trachea midline Normal rate and regular rhythm, no murmurs gallops or rubs appreciated. Clear to auscultation and symmetric bilaterally, normal respiratory effort. Normal bowel sounds, soft, non-tender, nondistended, no guarding. Extremities without clubbing, cyanosis, or edema. Left lower extremity, hip dressings in place. Left upper extremity in a sling with dressings in place Alert, awake, oriented to place, person and time, sleepy but arousable. Normal mood, appropriate affect Laboratory Laboratory Tests Test 11/15/16 11/16/16 21:38 03:52 White Blood Count 5.6 7.4 Red Blood Count 3.72 3.42 Hemoglobin 10.0 10.0 Bedside Hemoglobin 10.5 Hematocrit 32.1 29.1 Bedside Hematocrit 31.0 Mean Corpuscular Volume 86.3 84.9 Mean Corpuscular Hemoglobin 26.8 29.2 Mean Corpuscular Hemoglobin 31.1 34.4 Concent Red Cell Distribution Width 20.3 20.4 Platelet Count 283 277 Mean Platelet Volume 8.2 8.3 Neutrophils (%) (Auto) 51.5 71.1 Lymphocytes (%) (Auto) 29.0 17.4 Monocytes (%) (Auto) 9.0 8.1 Eosinophils (%) (Auto) 9.3 2.6 Basophils (%) (Auto) 1.2 0.8 Neutrophils # (Auto) 2.9 5.2 Lymphocytes # (Auto) 1.6 1.3 Monocytes # (Auto) 0.5 0.6 Eosinophils # (Auto) 0.5 0.2 Basophils # (Auto) 0.1 0.1 CBC Comment DIFF FINAL DIFF FINAL Differential Comment Prothrombin Time 11.1 Prothromb Time International 1.0 Ratio Activated Partial 23.4 Thromboplast Time Bedside Sodium 143 Bedside Potassium 3.8 Bedside Chloride 108 Bedside Blood Urea Nitrogen 19 Bedside Creatinine 0.8 Bedside Glucose 103 Blood Type AB POSITIVE Antibody Screen NEGATIVE Sodium Level 145 Potassium Level 4.0 Chloride Level 111 Carbon Dioxide Level 24.9 Anion Gap 9 Blood Urea Nitrogen 13 Creatinine 0.57 Estimat Glomerular Filtration 91 Rate Random Glucose 100 Calcium Level 8.2 Result Diagram: 11/16/16 0352 11/16/16 0352 Assessment and Plan Assessment and Plan This is a 62-year-old female with history of hypertension and seizures presenting after a fall with left hip and wrist fracture next Left hip and wrist fracture-status post ORIF, further management per orthopedics and trauma. Continue pain control with bowel regimen. Hypertension-on propranolol at home, restart propranolol, Vasotec as needed. History of seizures-continue Keppra, monitor. All other chronic medical issues are stable, continue medications per home dose as indicated. Lovenox for DVT prophylaxis Radha Trujillo MD November 16, 2016 12:42
[2016-11-16] MEDS: DEXT 5%-NACL 0.45% 1000 ML INJ 1,000 ML IV SCH ×2 (13:00→22:00)
--- NOTE | 2016-11-16 13:27 | RADRPT ---
EXAM DATE/TIME: 11/16/2016 10:27 [facility] COMPARISON: No previous studies available for comparison. INDICATIONS : Left hip ORIF troch nail. MEDICAL HISTORY : None. SURGICAL HISTORY : None. ENCOUNTER: Initial ACUITY: 1 day PAIN SCORE: Non-responsive. LOCATION: Left hip FINDINGS: 3 intraoperative spot images left hip. Left hip screw in place. Alignment near-anatomic. CONCLUSION: Intraoperative views showing left hip screw in place. Jere Gonsales MD on November 16, 2016 at 13:25 Board Certified Radiologist. This report was verified electronically.
[2016-11-16] MEDS ORDERED: DO NOT ADM ANY ANTICOAGULANT DRUGS PRN (13:30)
--- NOTE | 2016-11-16 13:32 | RADRPT ---
EXAM DATE/TIME: 11/16/2016 11:43 [facility] COMPARISON: WRIST LEFT LIMITED (AP & LAT), November 15, 2016, 21:23. INDICATIONS : Left wrist ORIF. MEDICAL HISTORY : None. SURGICAL HISTORY : None. ENCOUNTER: Subsequent ACUITY: 1 day PAIN SCORE: Non-responsive. LOCATION: Left wrist FINDINGS: 2 intraoperative spot images of the distal forearm and shape volar internal fixation plate in place i n the distal radius. Alignment near-anatomic. CONCLUSION: Intraoperative views showing hardware in the distal radius. Jere Gonsales MD on November 16, 2016 at 13:30 Board Certified Radiologist. This report was verified electronically.
[2016-11-16] MEDS: clonazePAM 1 MG TAB PO SCH ×2 (14:52→18:07)
[2016-11-16] MEDS ORDERED: ENALAPRILAT 1.25 MG/ML VIAL IV PUSH PRN (15:00)
[2016-11-16] MEDS: PROPRANOLOL HCL 20 MG TAB PO SCH ×2 (15:02→20:20)
[2016-11-16] MEDS: PANTOPRAZOLE SODIUM 40 MG VIAL IV SCH (15:02)
[2016-11-16] MEDS: MULTIVITAMIN TAB PO SCH (15:02)
[2016-11-16] MEDS: DULoxetine HCl DR 60 MG CAP PO SCH (15:02)
[2016-11-16] MEDS: levETIRAcetam 500 MG TAB PO SCH ×2 (15:03→20:20)
[2016-11-16] MEDS: MONTELUKAST SODIUM 10 MG TAB PO SCH (15:03)
[2016-11-16] MEDS: FOLIC ACID 1 MG TAB PO SCH (15:03)
--- NOTE | 2016-11-16 15:45 | EKG ---
Date Performed: 11/16/2016 Time Performed: 08:11:27 PTAGE: 89 years EKG: Sinus rhythm POSSIBLE RIGHT VENTRICULAR CONDUCTION DELAY BORDERLINE ECG INTERPRETATION BASED ON A DEFAULT AGE OF 40 YEARS NO PREVIOUS TRACING DOCTOR: Johanna Philip Interpretating Date/Time 11/16/2016 15:44:24
[2016-11-16] MEDS: MAGNESIUM HYDROXIDE SUSP 30 ML CUP PO SCH (20:19)
[2016-11-16] MEDS: DOCUSATE SODIUM 50 MG/SENNA 8.6 MG TAB PO SCH (20:20)
[2016-11-16] MEDS: SODIUM CHLORIDE 0.9% FLUSH 10 ML FLUSH IV FLUSH SCH (20:28)
[2016-11-16] MEDS ORDERED: DOCUSATE SODIUM 50 MG/SENNA 8.6 MG TAB PO SCH (21:00)
[2016-11-16] MEDS ORDERED: ZOLPIDEM TARTRATE 10 MG TAB PO PRN (21:00)
[2016-11-16] MEDS ORDERED: SODIUM CHLORIDE 0.9% FLUSH 5 ML FLUSH IVF SCH ×2 (21:00)
[2016-11-17] VITALS (7 sets, daily range): BP systolic 102–124; BP diastolic 67–74; PULSE 60–89; RESP 17–18; TEMP 96.9–98.7; O2SAT 94–100
[2016-11-17] MEDS: ACETAMINOPHEN/HYDROcodone 325 MG/7.5 MG TAB PO PRN ×4 (00:27→21:40)
[2016-11-17 06:45] LABS: HEMATOCRIT 27.9 % (35.0-46.0); MEAN CELL VOLUME 85.4 FL (80.0-100.0); MEAN CORPUSCULAR HEMOGLOBIN 27.4 PG (27.0-34.0); MEAN CORPUSCULAR HGB CONC 32.1 % (32.0-36.0); PLATELET COUNT 231 TH/MM3 (150-450); RED BLOOD COUNT 3.27 MIL/MM3 (4.00-5.30); RED CELL DISTRIBUTION WIDTH 19.7 % (11.6-17.2); REVIEW FLAG FINAL
[2016-11-17 07:09] LABS: BICARBONATE 29.4 MEQ/L (21.0-32.0); POTASSIUM 4.1 MEQ/L (3.5-5.1)
[2016-11-17] MEDS: PANTOPRAZOLE SODIUM 40 MG VIAL IV SCH (07:45)
[2016-11-17] MEDS: levETIRAcetam 500 MG TAB PO SCH ×2 (07:45→21:36)
[2016-11-17] MEDS: DOCUSATE SODIUM 50 MG/SENNA 8.6 MG TAB PO SCH ×2 (07:45→21:36)
[2016-11-17] MEDS: PROPRANOLOL HCL 20 MG TAB PO SCH ×2 (07:45→21:35)
[2016-11-17] MEDS: clonazePAM 1 MG TAB PO SCH ×3 (07:45→17:40)
[2016-11-17] MEDS: DULoxetine HCl DR 60 MG CAP PO SCH (07:45)
[2016-11-17] MEDS: MULTIVITAMIN TAB PO SCH (07:46)
[2016-11-17] MEDS: MONTELUKAST SODIUM 10 MG TAB PO SCH (07:46)
[2016-11-17] MEDS: SODIUM CHLORIDE 0.9% FLUSH 10 ML FLUSH IV FLUSH SCH ×2 (07:46→21:36)
--- NOTE | 2016-11-17 08:33 | PD.ORT.PN ---
Subjective Post Op Day #: 1 Subjective Remarks feeling better. pain under control. Objective Vitals Vital Signs Date Time Temp Pulse Resp B/P Pulse Ox O2 Delivery O2 Flow Rate FiO2 11/17/16 08:00 97.4 62 18 124/74 100 11/17/16 04:50 97.9 60 17 105/69 94 11/17/16 03:50 Nasal Cannula 2.00 11/16/16 23:25 97.0 72 18 135/79 97 11/16/16 20:35 99.5 71 17 147/78 98 11/16/16 16:00 95.5 61 17 142/77 98 11/16/16 14:25 98.9 67 18 174/78 100 11/16/16 13:30 98.6 66 12 161/80 97 Nasal Cannula 2 11/16/16 13:15 65 12 164/81 97 Nasal Cannula 2 11/16/16 13:00 66 12 168/86 98 Nasal Cannula 2 11/16/16 12:45 64 12 162/79 97 Nasal Cannula 2 11/16/16 12:35 98.5 67 12 168/82 96 Nasal Cannula 2 I/O 11/16/16 11/16/16 11/16/16 11/17/16 11/17/16 11/17/16 07:00 15:00 23:00 07:00 15:00 23:00 Intake Total 0 ml 800 ml 480 ml 240 ml Output Total 200 ml 400 ml 2100 ml 600 ml Balance -200 ml 400 ml -1620 ml -360 ml Intake Oral 0 ml 480 ml 240 ml Other 800 ml Output Urine Total 200 ml 200 ml 2100 ml 600 ml Estimated Blood Loss 200 ml # Bowel Movements 0 0 0 Result Diagram: 11/17/1662711/17/16627 Objective Remarks in bed, nad, eating dressing LLE c/d/i, neg homans, nvi spling LUE intact, cap refill, nvi Assessment & Plan Ortho Post Op Day #: 1 Problem List: Assessment and Plan s/p L troch nail and L ORIF distal radius fx NWB LUE, WBAT LLE maintain splint daily dressing changes L hip lovenox d/c planning f/up dr. shah 2 weeks Stephon Prieto November 17, 2016 08:33
[2016-11-17] MEDS: LACTULOSE SYRUP 20 GM/30 ML CUP PO SCH (09:00)
[2016-11-17] MEDS ORDERED: MULTIVITAMINS/MINERALS THERAPEUTIC TAB PO SCH ×2 (09:00)
--- NOTE | 2016-11-17 11:10 | HHI.PR ---
Subjective Subjective Notes PTD: 2 Patient has a period but arouses to staff and room. States she is doing "okay." She states that her pain is "okay." Objective Vitals/I&O Vital Signs Date Time Temp Pulse Resp B/P Pulse Ox O2 Delivery O2 Flow Rate FiO2 11/17/16 08:00 97.4 62 18 124/74 100 11/17/16 03:50 Nasal Cannula 2.00 11/15/16 21:29 100 Labs Laboratory Tests Test 11/17/16 06:28 White Blood Count 8.0 Red Blood Count 3.27 Hemoglobin 9.0 Hematocrit 27.9 Mean Corpuscular Volume 85.4 Mean Corpuscular Hemoglobin 27.4 Mean Corpuscular Hemoglobin 32.1 Concent Red Cell Distribution Width 19.7 Platelet Count 231 Mean Platelet Volume 7.7 Sodium Level 142 Potassium Level 4.1 Chloride Level 107 Carbon Dioxide Level 29.4 Anion Gap 6 Blood Urea Nitrogen 9 Creatinine 0.47 Estimat Glomerular Filtration 133 Rate Random Glucose 107 Calcium Level 8.5 Radiology Last Impressions Pelvis X-Ray 11/15/162139 Signed Impressions: Service Date/Time: Tuesday, November 15, 2016 21:23 - CONCLUSION: Intact pelvis. Aman Avendano MD Chest X-Ray 11/15/162139 Signed Impressions: Service Date/Time: Tuesday, November 15, 2016 21:23 - CONCLUSION: No evidence of acute cardiopulmonary disease. Aman Avendano MD Wrist X-Ray 11/15/16 0000 Signed Impressions: Service Date/Time: Tuesday, November 15, 2016 21:23 - CONCLUSION: Comminuted, impacted and mild dorsal angulated intra-articular fracture of the distal left radius. Aman Avendano MD Femur X-Ray 11/15/16 0000 Signed Impressions: Service Date/Time: Tuesday, November 15, 2016 21:23 - CONCLUSION: Comminuted minimally displaced intertrochanteric fracture. Aman Avendano MD Elbow X-Ray 11/15/16 0000 Signed Impressions: Service Date/Time: Tuesday, November 15, 2016 21:23 - CONCLUSION: Nondisplaced fracture of the distal humerus not excludable. Dedicated complete elbow x-ray series recommended when clinically feasible. Aman Avendano MD Narrative Exam GENERAL: This is a 70 year female lying in bed, drowsy. No distress noted. SKIN: Warm and dry. HEAD: Atraumatic. Normocephalic. EYES: PERRLA ENT: No nasal bleeding or discharge. Mucous membranes pink and moist. NECK: Trachea midline. No JVD. CARDIOVASCULAR: Regular rate and rhythm. RESPIRATORY: No accessory muscle use. Lungs are clear to auscultation. Breath sounds equal bilaterally. No distress or dyspnea. GASTROINTESTINAL: BS + x 4 quads. Abdomen soft, non-tender, nondistended. Salgado catheter in place to bedside drainage bag. MUSCULOSKELETAL: Extremities without cyanosis, or edema. LEFT arm wrapped with Santiago bandage and arm in sling for support/comfort. + peripheral pulses x 4 extremities. Warm with good capillary refill and sensation. MAEW. LEFT outer hip/thigh dressing in place CDI. NEUROLOGICAL: Drowsy , but will respond to questioning. A/P Problem List: (1) Distal radius fracture, left (2) Intertrochanteric fracture of left hip Assessment and Plan [place]: This is a 62 year old female who sustained a fall from a stepstool of approximately 2 feet. She landed on her left side. PMHx: Palpitations, HTN. insomnia, anemia, Smoker INJURIES: Left radius fracture Left femur fracture Procedures: 11/15: Closed reduction of distal radius in ED 11/16: ORIF left radius; ORIF IM nail left femur Consults: Orthopedics. Hospitalist. Diet: Regular diet. Tolerating po diet. Encourage good po intake with each meal. Pulmonary: Encourage good pulmonary toileting. IS at bedside and pt encouraged to use. Rationale for use explained to patient, and verbalized understanding. All home medications have been restarted. Follow-up labs in the morning. PAIN Management: [place] 7.5-15 po. Dilaudid PRN breakthrough pain. Activity: OOB. PT and OT ordered. (NWB LUE; WBAT LLE) GI prophylaxis: Protonix IV Bowel regimen: Lexie-colace and MOM. LBM: 0. Intensified with lactulose daily. DC Salgado catheter. DVT prophylaxis: Mechanical VTE with SCDs. Chemical management with Lovenox 30 q day. DC Planning: Case management consulted for assistance with final discharge disposition. Emotional support provided to patient and family at bedside and plan of care discussed. Discussed with RN at bedside. Patient is hemodynamically stable and being managed on the med/surg floor. - LEFT radius fracture - LEFT femur fracture Consulted orthopedics for assistance with management and care 11/15: Closed reduction of distal radius in ED 11/16 ORIF left radius; ORIF IM nail left femur Dressing CDI, and maintain as per orthopedics recommendations Pain control - [place], Dilaudid PRN PT and OT ordered (NWB LUE; WBAT LLE) Patient will most likely rehabilitation Problem Qualifiers (1) Distal radius fracture, left: Qualified Code: S52.502A - Closed fracture of distal end of left radius, unspecified fracture morphology, initial encounter (2) Intertrochanteric fracture of left hip: Qualified Code: S72.142A - Intertrochanteric fracture of left hip, closed, initial encounter Shakila Jacome November 17, 2016 11:10
[2016-11-17] MEDS: FOLIC ACID 1 MG TAB PO SCH (12:00)
[2016-11-17] MEDS: ENOXAPARIN SODIUM 30 MG/0.3 ML SYRINGE SQ SCH (12:00)
--- NOTE | 2016-11-17 15:48 | HHI.PR ---
Subjective Remarks doing ok. has been oob with PT Objective Vitals heart reg lung cta abd s/nt ext no edema harris Vital Signs Date Time Temp Pulse Resp B/P Pulse Ox O2 Delivery O2 Flow Rate FiO2 11/17/16 12:14 97 11/17/16 12:00 98.6 64 18 102/70 94 11/17/16 08:00 97.4 62 18 124/74 100 11/17/16 04:50 97.9 60 17 105/69 94 11/17/16 03:50 Nasal Cannula 2.00 11/16/16 23:25 97.0 72 18 135/79 97 11/16/16 20:35 99.5 71 17 147/78 98 11/16/16 16:00 95.5 61 17 142/77 98 11/16/16 11/16/16 11/17/16 15:00 23:00 07:00 Intake Total 800 ml 480 ml Output Total 400 ml 2100 ml Balance 400 ml -1620 ml Intake Oral 480 ml Other 800 ml Output Urine Total 200 ml 2100 ml Estimated Blood Loss 200 ml # Bowel Movements 0 Result Diagram: 11/17/16 0628 11/17/16 0628 A/P Problem List: (1) Intertrochanteric fracture of left hip Status: Acute Plan: Pt 66 yo woman htn, RA, sz d/o presented after a fall Left intertroch fx and radial fx s/p IM nail and orif d/c harris pain control dvt prophylaxis IS home meds spoke with trauma svc plan for d/c to snf tomorrow if stable. (2) Distal radius fracture, left Status: Acute Plan: see above (3) Seizure Status: Chronic (4) RA (rheumatoid arthritis) Status: Chronic (5) HTN (hypertension) Status: Chronic Problem Qualifiers (1) Intertrochanteric fracture of left hip: Qualified Code: S72.142A - Intertrochanteric fracture of left hip, closed, initial encounter (2) Distal radius fracture, left: Qualified Code: S52.502A - Closed fracture of distal end of left radius, unspecified fracture morphology, initial encounter Urbano Cullen MD November 17, 2016 15:48
[2016-11-17] MEDS: MAGNESIUM HYDROXIDE SUSP 30 ML CUP PO SCH (21:35)
--- NOTE | 2016-11-17 22:20 | MP ---
cc: MIRIAM JOSHUA DATE OF SURGERY November 16, 2016 PREOPERATIVE DIAGNOSES Left intertrochanteric hip fracture, left distal radius fracture. POSTOPERATIVE DIAGNOSES Left intertrochanteric hip fracture, left distal radius fracture. PROCEDURE Intramedullary nailing left intertrochanteric hip fracture, open reduction internal fixation left distal radius fracture greater than three intra-articular fragments. SURGEON Dr. Miriam Joshua. [employer] Malcolm ANESTHESIA General. ESTIMATED BLOOD LOSS 200 cc. COMPLICATIONS None. IMPLANTS USED Synthes. JUSTIFICATION This patient is an approximately 62-year-old female who fell from a height sustaining the above-named injury. She was taken to [facility] Emergency Room where x-rays confirmed the above-named findings. Orthopedics surgery was consulted. The patient was counseled to the risks, benefits and alternatives to the above name proposed surgical procedures. She did wish to proceed with surgery. PROCEDURE IN DETAILS A written consent was obtained. The patient was identified by name, taken to the operating room and placed supine on the operating table. General anesthesia was administered as well as 2 grams of IV Ancef and 1 gram of IV vancomycin. Attention was first turned to the left hip where the patient had her left foot placed in a padded traction boot. The right leg was placed in padded well leg hussein. All bony prominences and pressure points were well padded. The left hip and left lower extremity were prepped and draped using as isopropyl alcohol, Hibiclens solution and DuraPrep solution. Using the assistance of fluoroscopic guidance, a preliminary reduction of the left hip intertrochanteric fracture was achieved. After a time-out was performed a longitudinal incision was made over lateral aspect of the left hip. Again appropriate sterile draping was performed preoperatively as to include alcohol, Hibiclens and DuraPrep. The fascial layer was incised and a guidewire was used to gain entrance into the intramedullary canal of the femur. A cannulated entry reamer was used to perform a fire pilot starting hole. Subsequently a Synthes 11 x 170 mm titanium trochanteric femoral nail was inserted into the intramedullary canal of the femur. The 130 degree locking jig was used to place a guide pin centered in the femoral head on the AP and lateral fluoroscopic projections. This was followed by placement of a 100 mm spiral blade. The top locking screw was secured angle sliding construct distally. The locking jig was used to place a single static lateral to medial transverse locking screw. Fluoroscopic imaging again confirmed hardware placement and fracture reduction. The surgical wound was thoroughly irrigated with sterile saline solution. The fascial layer was closed with #1 Vicryl suture. The subcutaneous layer was closed with 2-0 Vicryl suture. Skin was closed with Dermabond. Sterile dressing applied. At this point attention was turned to the left upper extremity where this was separately prepped and draped using isopropyl alcohol, Hibiclens solution and Chloraprep solution. After a second time out was performed, a longitudinal incision was made over the volar aspect of the left wrist. The flexor carpi radialis tendon sheath was incised and pronator musculature elevated off the radial aspect of the distal radius. A [place] elevator was used to assist with preliminary fracture reduction. Multiple K-wires were used for preliminary fixation and reconstruction of the joint surface and multiple intra-articular fragments which did involve the joint surface itself. Subsequently a Synthes stainless steel volar distal radius locking plate was applied to the volar aspect of the distal radius. A combination of both locking and nonlocking screws were used for fixation. Fluoroscopic imaging confirmed hardware placement and fracture reduction. The surgical wound was thoroughly irrigated with sterile saline solution. Subcutaneous layer and pronator layer were closed with 3-0 Vicryl. Skin incisions closed with Dermabond. Sterile dressing applied. The patient was placed in well-padded splint. She tolerated the procedure well and again no intraoperative complications noted. Bakari Prieto, physician grants and contracts assistant-certified, was present during the entire procedure to include patient positioning and the procedure itself. The medical necessity of a physician grants and contracts assistant was indicated in this case due to the complexity of the procedure. He assisted with appropriate manipulation of the leg and also retraction of muscle, tendon and bone and neurovascular structures. He assisted with preparation of bone and also implantation of internal fixation devices for purposes of the left intertrochanteric hip fracture repair and left distal radius fracture repair. MD SERAFIN Vega/KK /12:11 PM /10:03 PM
[2016-11-18] VITALS (7 sets, daily range): BP systolic 100–124; BP diastolic 67–72; PULSE 70–90; RESP 17–20; TEMP 97.6–100; O2SAT 93–98
[2016-11-18 07:38] LABS: HEMATOCRIT 25.5 % (35.0-46.0); MEAN CELL VOLUME 84.2 FL (80.0-100.0); MEAN CORPUSCULAR HEMOGLOBIN 27.8 PG (27.0-34.0); PLATELET COUNT 229 TH/MM3 (150-450); RED BLOOD COUNT 3.03 MIL/MM3 (4.00-5.30); REVIEW FLAG FINAL; WHITE BLOOD COUNT 7.8 TH/MM3 (4.0-11.0)
[2016-11-18] MEDS ORDERED: BISACODYL EC 5 MG TABEC PO ONE (07:45)
[2016-11-18] MEDS: BISACODYL 10 MG SUPP RECTAL ONE ×2 (07:45→12:25)
[2016-11-18] MEDS: MONTELUKAST SODIUM 10 MG TAB PO SCH (07:46)
[2016-11-18] MEDS: clonazePAM 1 MG TAB PO SCH ×3 (07:46→17:42)
[2016-11-18] MEDS: DULoxetine HCl DR 60 MG CAP PO SCH (07:46)
[2016-11-18] MEDS: DOCUSATE SODIUM 50 MG/SENNA 8.6 MG TAB PO SCH ×2 (07:46→21:29)
[2016-11-18] MEDS: PANTOPRAZOLE SODIUM 40 MG VIAL IV SCH (07:46)
[2016-11-18] MEDS: levETIRAcetam 500 MG TAB PO SCH ×2 (07:47→21:29)
[2016-11-18] MEDS: PROPRANOLOL HCL 20 MG TAB PO SCH ×2 (07:47→21:00)
[2016-11-18] MEDS: LACTULOSE SYRUP 20 GM/30 ML CUP PO SCH (07:47)
[2016-11-18] MEDS: ACETAMINOPHEN/HYDROcodone 325 MG/7.5 MG TAB PO PRN ×3 (07:47→21:29)
[2016-11-18] MEDS: MULTIVITAMIN TAB PO SCH (07:47)
[2016-11-18] MEDS: SODIUM CHLORIDE 0.9% FLUSH 10 ML FLUSH IV FLUSH SCH ×2 (07:48→21:00)
[2016-11-18 08:06] LABS: BICARBONATE 29.9 MEQ/L (21.0-32.0); POTASSIUM 3.8 MEQ/L (3.5-5.1)
--- NOTE | 2016-11-18 11:49 | HHI.PR ---
Subjective Subjective Notes PTD: 3 Patient out of bed and chair. States her pain is 7/10 in both her arm and leg. Objective Vitals/I&O Vital Signs Date Time Temp Pulse Resp B/P Pulse Ox O2 Delivery O2 Flow Rate FiO2 11/18/16 08:02 100.0 84 18 124/69 95 11/17/16 03:50 Nasal Cannula 2.00 11/15/16 21:29 100 Labs Laboratory Tests Test 11/18/16 06:56 White Blood Count 7.8 Red Blood Count 3.03 Hemoglobin 8.4 Hematocrit 25.5 Mean Corpuscular Volume 84.2 Mean Corpuscular Hemoglobin 27.8 Mean Corpuscular Hemoglobin 33.0 Concent Red Cell Distribution Width 20.0 Platelet Count 229 Mean Platelet Volume 8.1 Sodium Level 143 Potassium Level 3.8 Chloride Level 107 Carbon Dioxide Level 29.9 Anion Gap 6 Blood Urea Nitrogen 11 Creatinine 0.45 Estimat Glomerular Filtration 140 Rate Random Glucose 80 Calcium Level 8.3 Radiology Last Impressions Pelvis X-Ray 11/15/162139 Signed Impressions: Service Date/Time: Tuesday, November 15, 2016 21:23 - CONCLUSION: Intact pelvis. mAan Avendano MD Chest X-Ray 11/15/162139 Signed Impressions: Service Date/Time: Tuesday, November 15, 2016 21:23 - CONCLUSION: No evidence of acute cardiopulmonary disease. Aman Avendano MD Wrist X-Ray 11/15/16 0000 Signed Impressions: Service Date/Time: Tuesday, November 15, 2016 21:23 - CONCLUSION: Comminuted, impacted and mild dorsal angulated intra-articular fracture of the distal left radius. Aman Avendano MD Femur X-Ray 11/15/16 0000 Signed Impressions: Service Date/Time: Tuesday, November 15, 2016 21:23 - CONCLUSION: Comminuted minimally displaced intertrochanteric fracture. Aman Avendano MD Elbow X-Ray 11/15/16 0000 Signed Impressions: Service Date/Time: Tuesday, November 15, 2016 21:23 - CONCLUSION: Nondisplaced fracture of the distal humerus not excludable. Dedicated complete elbow x-ray series recommended when clinically feasible. Aman Avendano MD Narrative Exam GENERAL: This is a 70 year female out of bed and chair. No distress noted. Pleasant and cooperative. SKIN: Warm and dry. HEAD: Atraumatic. Normocephalic. EYES: PERRLA ENT: No nasal bleeding or discharge. Mucous membranes pink and moist. NECK: Trachea midline. No JVD. CARDIOVASCULAR: Regular rate and rhythm. RESPIRATORY: No accessory muscle use. Lungs are clear to auscultation. Breath sounds equal bilaterally. No distress or dyspnea. GASTROINTESTINAL: BS + x 4 quads. Abdomen soft, non-tender, nondistended. MUSCULOSKELETAL: Extremities without cyanosis, or edema. LEFT arm splint - wrapped with Santiago bandage and arm in sling for support/comfort. + peripheral pulses x 4 extremities. Warm with good capillary refill and sensation. MAEW. LEFT outer hip/thigh dressing in place CDI. NEUROLOGICAL: Awake and alert. Normal speech and pattern. A/P Problem List: (1) Distal radius fracture, left (2) Intertrochanteric fracture of left hip Assessment and Plan [place]: This is a 62 year old female who sustained a fall from a step-stool of approximately 2 feet. She landed on her left side. PMHx: Palpitations, HTN. insomnia, anemia, Smoker, arthritis, gastric bypass. INJURIES: Left radius fracture Left femur fracture Procedures: 11/15: Closed reduction of distal radius in ED 11/16: ORIF left radius; ORIF IM nail left femur Consults: Orthopedics. Hospitalist. Diet: Regular diet. Tolerating po diet. Encourage good po intake with each meal. Pulmonary: Encourage good pulmonary toileting. IS at bedside and pt encouraged to use. Rationale for use explained to patient, and verbalized understanding. All home medications have been restarted. PAIN Management: [place] 7.5-15 po. Dilaudid PRN breakthrough pain. Activity: OOB. PT and OT ordered. (NWB LUE; WBAT LLE) GI prophylaxis: Protonix IV Bowel regimen: Lexie-colace and MOM. Lactulose. LBM: 0. Intensified bisacodyl P0/N[place] 1 dose today. DVT prophylaxis: Mechanical VTE with SCDs. Chemical management with Lovenox 30 q day. DC Planning: Case management consulted for assistance with final discharge disposition. Both PT and OT recommend rehabilitation. Consult placed to nurse liaison - to see if [facility] might be an option for admission for rehabilitation. Authorization for admission is being submitted today. Emotional support provided to patient and family at bedside and plan of care discussed. Discussed with RN at bedside. Patient is hemodynamically stable and being managed on the med/surg floor. - LEFT radius fracture - LEFT femur fracture Consulted orthopedics for assistance with management and care 11/15: Closed reduction of distal radius in ED 11/16 ORIF left radius; ORIF IM nail left femur Dressing CDI, and maintain as per orthopedics recommendations Pain control - [place], Dilaudid PRN PT and OT ordered (NWB LUE; WBAT LLE) Patient will most likely rehabilitation - consult placed to nurse liaison from [facility]. The exam, history, and the medical decision-making described in the above note were completed with the assistance of the mid-level provider. I reviewed and agree with the findings presented. I attest that I had a [id number] encounter with the patient on the same day, and personally performed and documented my assessment and findings in the medical record. Problem Qualifiers (1) Distal radius fracture, left: Qualified Code: S52.502A - Closed fracture of distal end of left radius, unspecified fracture morphology, initial encounter (2) Intertrochanteric fracture of left hip: Qualified Code: S72.142A - Intertrochanteric fracture of left hip, closed, initial encounter Shakila Jacome November 18, 2016 11:49 Adalberto Locke MD Dec 17, 2016 21:15
[2016-11-18] MEDS: ENOXAPARIN SODIUM 30 MG/0.3 ML SYRINGE SQ SCH (12:24)
[2016-11-18] MEDS: FOLIC ACID 1 MG TAB PO SCH (12:33)
--- NOTE | 2016-11-18 13:39 | PD.ORT.PN ---
Subjective Post Op Day #: 2 Subjective Remarks feeling better. pain under control. Objective Vitals Vital Signs Date Time Temp Pulse Resp B/P Pulse Ox O2 Delivery O2 Flow Rate FiO2 11/18/16 08:02 100.0 84 18 124/69 95 11/18/16 05:00 98.7 75 17 100/69 94 11/18/16 00:00 99.4 75 17 107/67 94 11/17/16 22:47 18 11/17/16 20:40 98.7 89 17 113/67 95 11/17/16 19:54 87 11/17/16 16:00 96.9 77 18 104/70 95 I/O 11/17/16 11/17/16 11/17/16 11/18/16 11/18/16 11/18/16 06:59 14:59 22:59 06:59 14:59 22:59 Intake Total 840 ml 636 ml 616 ml Output Total 1200 ml 400 ml 250 ml Balance -360 ml 236 ml 366 ml Intake Oral 840 ml 480 ml 240 ml IV Total 156 ml 376 ml Output Urine Total 1200 ml 400 ml 250 ml # Bowel Movements 0 0 0 Result Diagram: 11/18/16 0656 11/18/16 0656 Objective Remarks in bed, nad, eating lunch dressing LLE c/d/i, neg homans, nvi splint LUE intact, cap refill, nvi, swelling in fingers Assessment & Plan Ortho Post Op Day #: 2 Problem List: Assessment and Plan s/p L troch nail and L ORIF distal radius fx NWB LUE, WBAT LLE maintain splint daily dressing changes L hip lovenox d/c planning ortho stable f/up dr. shah 2 weeks Stephon Prieto November 18, 2016 13:39
--- NOTE | 2016-11-18 14:12 | HHI.PR ---
Subjective Remarks Pt had a BM today. Nursing staff reports that she seemed a bit "off" today and required three people to lift her out of the chair. Objective Vitals Vital Signs Date Time Temp Pulse Resp B/P Pulse Ox O2 Delivery O2 Flow Rate FiO2 11/18/16 08:02 100.0 84 18 124/69 95 11/18/16 05:00 98.7 75 17 100/69 94 11/18/16 00:00 99.4 75 17 107/67 94 11/17/16 22:47 18 11/17/16 20:40 98.7 89 17 113/67 95 11/17/16 19:54 87 11/17/16 16:00 96.9 77 18 104/70 95 11/17/16 11/17/16 11/18/16 14:59 22:59 06:59 Intake Total 840 ml 636 ml 616 ml Output Total 1200 ml 400 ml 250 ml Balance -360 ml 236 ml 366 ml Intake Oral 840 ml 480 ml 240 ml IV Total 156 ml 376 ml Output Urine Total 1200 ml 400 ml 250 ml # Bowel Movements 0 0 0 Result Diagram: 11/18/16 0656 11/18/16 06 Other Results Laboratory Tests Test 11/17/16 11/18/16 06:28 06:56 White Blood Count 8.0 TH/MM3 7.8 TH/MM3 Red Blood Count 3.27 MIL/MM3 3.03 MIL/MM3 Hemoglobin 9.0 GM/DL 8.4 GM/DL Hematocrit 27.9 % 25.5 % Mean Corpuscular Volume 85.4 FL 84.2 FL Mean Corpuscular Hemoglobin 27.4 PG 27.8 PG Mean Corpuscular Hemoglobin 32.1 % 33.0 % Concent Red Cell Distribution Width 19.7 % 20.0 % Platelet Count 231 TH/MM3 229 TH/MM3 Mean Platelet Volume 7.7 FL 8.1 FL Sodium Level 142 MEQ/L 143 MEQ/L Potassium Level 4.1 MEQ/L 3.8 MEQ/L Chloride Level 107 MEQ/L 107 MEQ/L Carbon Dioxide Level 29.4 MEQ/L 29.9 MEQ/L Anion Gap 6 MEQ/L 6 MEQ/L Blood Urea Nitrogen 9 MG/DL 11 MG/DL Creatinine 0.47 MG/DL 0.45 MG/DL Estimat Glomerular Filtration 133 ML/MIN 140 ML/MIN Rate Random Glucose 107 MG/DL 80 MG/DL Calcium Level 8.5 MG/DL 8.3 MG/DL Imaging Last Impressions Wrist X-Ray 11/16/16 0000 Signed Impressions: Service Date/Time: Wednesday, November 16, 2016 11:43 - CONCLUSION: Intraoperative views showing hardware in the distal radius. Jere Gonsales MD Hip X-Ray 11/16/16 0000 Signed Impressions: Service Date/Time: Wednesday, November 16, 2016 10:27 - CONCLUSION: Intraoperative views showing left hip screw in place. Jere Gonsales MD Pelvis X-Ray 11/15/162139 Signed Impressions: Service Date/Time: Tuesday, November 15, 2016 21:23 - CONCLUSION: Intact pelvis. Aman Avendano MD Chest X-Ray 11/15/162139 Signed Impressions: Service Date/Time: Tuesday, November 15, 2016 21:23 - CONCLUSION: No evidence of acute cardiopulmonary disease. Aman Avendano MD Femur X-Ray 11/15/16 Signed Impressions: Service Date/Time: Tuesday, November 15, 2016 21:23 - CONCLUSION: Comminuted minimally displaced intertrochanteric fracture. Aman Avendano MD Elbow X-Ray 11/15/16 Signed Impressions: Service Date/Time: Tuesday, November 15, 2016 21:23 - CONCLUSION: Nondisplaced fracture of the distal humerus not excludable. Dedicated complete elbow x-ray series recommended when clinically feasible. Aman Avendano MD Objective Remarks General: NAD, AAOx3 Chest:CTA Cardiac: Regular Abd: +BS, soft ND/NT Ext: No edema A/P Problem List: (1) Intertrochanteric fracture of left hip Status: Acute Plan: - Pt is a 66 y/o female with HTN, RA, and seizure d/o who presented after a fall from a step-stool. - Pt found to have left intertrochanteric fx and radial fx. - Pt underwent L trochanteric nail fixation and L ORIF distal radius fx on with Dr. Locke. - Pt is NWB LUE, WBAT LLE - Constipation precautions - Pt urinating without Salgado - Pain control PRN - PT daily - IS - DVT prophylaxis - Pt will plan for d/c to snf tomorrow if stable. (2) Distal radius fracture, left Status: Acute Plan: - See above (3) Seizure Status: Chronic Plan: - Home meds continued (4) RA (rheumatoid arthritis) Status: Chronic Plan: - Home meds continued (5) HTN (hypertension) Status: Chronic Plan: - Home meds continued Assessment and Plan Patient examined. Assessment and plan formulated with Estephania Vora PA-C. I agree with the above. Pt will need SNF upon discharge. Pt had been refusing SNF in part because she felt that she would have to pay privately. I verified with [facility] Case Mgmt that pt does have SNF coverage benefits. Anticipate d/c to SNF 11/19/16 Problem Qualifiers (1) Intertrochanteric fracture of left hip: Qualified Code: S72.142A - Intertrochanteric fracture of left hip, closed, initial encounter (2) Distal radius fracture, left: Qualified Code: S52.502A - Closed fracture of distal end of left radius, unspecified fracture morphology, initial encounter Estephania Vora November 18, 2016 14:12 Ranulfo Lima DO November 19, 2016 02:09
[2016-11-18] MEDS: MAGNESIUM HYDROXIDE SUSP 30 ML CUP PO SCH (21:29)
[2016-11-19 00:30] VITALS: BP 105/60; PULSE 78; RESP 18; TEMP 99.6; O2SAT 95
[2016-11-19 05:05] VITALS: BP 124/70; PULSE 76; RESP 18; TEMP 99.1; O2SAT 96
[2016-11-19] MEDS: ACETAMINOPHEN/HYDROcodone 325 MG/7.5 MG TAB PO PRN ×2 (05:24→12:00)
[2016-11-19 07:42] VITALS: PULSE 66
[2016-11-19 07:44] LABS: HEMATOCRIT 24.2 % (35.0-46.0); MEAN CELL VOLUME 85.6 FL (80.0-100.0); MEAN CORPUSCULAR HEMOGLOBIN 27.5 PG (27.0-34.0); MEAN CORPUSCULAR HGB CONC 32.1 % (32.0-36.0); PLATELET COUNT 228 TH/MM3 (150-450); RED BLOOD COUNT 2.83 MIL/MM3 (4.00-5.30); RED CELL DISTRIBUTION WIDTH 19.9 % (11.6-17.2); REVIEW FLAG FINAL; WHITE BLOOD COUNT 6.1 TH/MM3 (4.0-11.0)
[2016-11-19 08:00] VITALS: BP 115/68; PULSE 65; RESP 18; TEMP 98.1; O2SAT 95
[2016-11-19 08:05] LABS: BICARBONATE 29.9 MEQ/L (21.0-32.0); POTASSIUM 4.2 MEQ/L (3.5-5.1)
[2016-11-19] MEDS: PANTOPRAZOLE SODIUM 40 MG VIAL IV SCH (09:00)
[2016-11-19] MEDS: SODIUM CHLORIDE 0.9% FLUSH 10 ML FLUSH IV FLUSH SCH (09:00)
--- NOTE | 2016-11-19 09:00 | PD.ORT.PN ---
Subjective Post Op Day #: 3 Subjective Remarks feeling better. pain under control. family in room. having difficulty with PT. Objective Vitals Vital Signs Date Time Temp Pulse Resp B/P Pulse Ox O2 Delivery O2 Flow Rate FiO2 11/19/16 08:00 98.1 65 18 115/68 95 11/19/16 07:42 Room Air 11/19/16 07:42 66 11/19/16 05:05 99.1 76 18 124/70 96 11/19/16 00:30 99.6 78 18 105/60 95 11/18/16 20:57 99.8 90 18 121/71 95 11/18/16 19:44 89 11/18/16 16:00 98.2 79 20 110/72 98 11/18/16 12:00 97.6 70 20 109/68 93 I/O 11/18/16 11/18/16 11/18/16 11/19/16 11/19/16 11/19/16 07:00 15:00 23:00 07:00 15:00 23:00 Intake Total 616 ml 600 ml 480 ml 240 ml Output Total 250 ml Balance 366 ml 600 ml 480 ml 240 ml Intake Oral 240 ml 600 ml 480 ml 240 ml IV Total 376 ml Output Urine Total 250 ml # Voids 3 2 3 # Bowel Movements 0 0 0 0 Result Diagram: 11/19/1671311/19/16713 Objective Remarks in bed, nad, family in room dressing LLE c/d/i, neg homans, nvi splint LUE intact, cap refill, nvi, swelling in fingers Assessment & Plan Ortho Post Op Day #: 3 Problem List: Assessment and Plan s/p L troch nail and L ORIF distal radius fx NWB LUE, WBAT LLE maintain splint daily dressing changes L hip lovenox d/c planning to snf ortho stable - cleared for d/c f/up dr. shah 2 weeks Stephon Prieto November 19, 2016 09:00
[2016-11-19] MEDS: LACTULOSE SYRUP 20 GM/30 ML CUP PO SCH (09:13)
[2016-11-19] MEDS: PROPRANOLOL HCL 20 MG TAB PO SCH (09:14)
[2016-11-19] MEDS: DOCUSATE SODIUM 50 MG/SENNA 8.6 MG TAB PO SCH (09:14)
[2016-11-19] MEDS: DULoxetine HCl DR 60 MG CAP PO SCH (09:14)
[2016-11-19] MEDS: clonazePAM 1 MG TAB PO SCH ×2 (09:14→12:00)
[2016-11-19] MEDS: MULTIVITAMIN TAB PO SCH (09:14)
[2016-11-19] MEDS: MONTELUKAST SODIUM 10 MG TAB PO SCH (09:14)
[2016-11-19] MEDS: levETIRAcetam 500 MG TAB PO SCH (09:14)
[2016-11-19] MEDS ORDERED: DEMECLOCYCLINE HCL 150 MG TAB PO SCH (10:00)
--- NOTE | 2016-11-19 10:33 | HHI.DCPOC ---
Discharge Care Plan Diagnosis: (1) Intertrochanteric fracture of left hip (2) Distal radius fracture, left (3) Seizure (4) HTN (hypertension) (5) RA (rheumatoid arthritis) Goals to Promote Your Health * To prevent worsening of your condition and complications * To maintain your health at the optimal level Directions to Meet Your Goals Take your medications as prescribed Follow your dietary instruction Follow activity as directed Keep your appointments as scheduled Take your immunizations and boosters as scheduled If your symptoms worsen call your PCP, if no PCP go to Urgent Care Center or Emergency Room Smoking is Dangerous to Your Health. Avoid second hand smoke Call the 24-hour hour crisis hotline for domestic abuse at Estephania Vora November 19, 2016 10:33 Ranulfo Lima DO November 22, 2016 22:39
[2016-11-19] MEDS ORDERED: ASPI81CH37 CHEW (10:53)
--- NOTE | 2016-11-19 11:12 | HHI.DS ---
Discharge Summary Admission Date November 15, 2016 at 22:21 Discharge Date: November 19, 2016 Admitting Diagnosis Fall; L Distal Radius Fx, L Intertrochanteric Fx (1) Intertrochanteric fracture of left hip Diagnosis: Principal (2) Distal radius fracture, left Diagnosis: Principal (3) Seizure Diagnosis: Secondary (4) RA (rheumatoid arthritis) Diagnosis: Secondary (5) HTN (hypertension) Diagnosis: Secondary Consultants Dr. Stephon Locke - Orthopedic Surgery Procedures Left trochanteric nail fixation and left ORIF distal radius fx on 11/16/[address] Locke. CBC/BMP: 11/19/16 0714 11/19/16 0714 Significant Findings Laboratory Tests Test 11/17/16 11/18/16 11/19/16 06:28 06:56 07:14 Red Blood Count 3.27 MIL/MM3 3.03 MIL/MM3 2.83 MIL/MM3 (4.00-5.30) (4.00-5.30) (4.00-5.30) Hemoglobin 9.0 GM/DL 8.4 GM/DL 7.8 GM/DL (11.6-15.3) (11.6-15.3) (11.6-15.3) Hematocrit 27.9 % 25.5 % 24.2 % (35.0-46.0) (35.0-46.0) (35.0-46.0) Red Cell Distribution Width 19.7 % 20.0 % 19.9 % (11.6-17.2) (11.6-17.2) (11.6-17.2) Creatinine 0.47 MG/DL 0.45 MG/DL 0.47 MG/DL (0.50-1.00) (0.50-1.00) (0.50-1.00) Random Glucose 107 MG/DL (74-106) Calcium Level 8.3 MG/DL 8.4 MG/DL (8.5-10.1) (8.5-10.1) Imaging Last Impressions Wrist X-Ray 11/16/16 0000 Signed Impressions: Service Date/Time: Wednesday, November 16, 2016 11:43 - CONCLUSION: Intraoperative views showing hardware in the distal radius. Jere Gonsales MD Hip X-Ray 11/16/16 0000 Signed Impressions: Service Date/Time: Wednesday, November 16, 2016 10:27 - CONCLUSION: Intraoperative views showing left hip screw in place. Jere Gonsales MD Pelvis X-Ray 11/15/162139 Signed Impressions: Service Date/Time: Tuesday, November 15, 2016 21:23 - CONCLUSION: Intact pelvis. Aman Avendano MD Chest X-Ray 11/15/162139 Signed Impressions: Service Date/Time: Tuesday, November 15, 2016 21:23 - CONCLUSION: No evidence of acute cardiopulmonary disease. Aman Avendano MD Femur X-Ray 11/15/16 0000 Signed Impressions: Service Date/Time: Tuesday, November 15, 2016 21:23 - CONCLUSION: Comminuted minimally displaced intertrochanteric fracture. Aman Avendano MD Elbow X-Ray 11/15/16 0000 Signed Impressions: Service Date/Time: Tuesday, November 15, 2016 21:23 - CONCLUSION: Nondisplaced fracture of the distal humerus not excludable. Dedicated complete elbow x-ray series recommended when clinically feasible. Aman Avendano MD PE at Discharge General: NAD, AAOx3 Chest:CTA Cardiac: Regular Abd: +BS, soft ND/NT Ext: No edema Hospital Course Pt is a 66 y/o female with HTN, RA, and seizure d/o who presented after a fall from a step-stool. Pt found to have left intertrochanteric fx and left radial fx. Pt underwent L trochanteric nail fixation and L ORIF distal radius fx on with Dr. Locke. Pt is NWB LUE, WBAT LLE. Pt has done well post-operatively with pain control. She has moved her bowels and is urinating without difficulty. Pts BP remained stable on her home regimen. Pts home medications for her seizure disorder were continued without any noted seizure activity. Pt is planned for discharge to inpatient rehab at [facility]. She will need to followup with Dr. Locke in 2 weeks She will continue on Lovenox for DVT prophylaxis x 7 days per Orthopedic surgery She will followup with her PCP, Dr. Rodriguez, 1 week after discharge from rehab. Pt Condition on Discharge: Stable Discharge Disposition: Rehab Inpatient Discharge Instructions DIET: Follow Instructions for: Heart Healthy Diet Activities you can perform: See Additionl Instruction Other Activity Instructions: Weight bearing instructions per Orthopedic surgery Follow up Referrals: Orthopedics - 2 Weeks with Stephon Locke MD PCP Follow-up - 1 Month New Medications: Aspirin (Aspirin Low Dose) 81 Mg Chew 81 MG CHEW BID To be started after the lovenox is completed dvt prophylaxis #60 Ref 0 TAB Enoxaparin Inj (Lovenox Inj) 30 Mg/0.3 Ml Syr 30 MG SQ DAILY Blood Clot Prevention #7 Ref 0 SYRINGE Hydrocodone-Acetaminophen (Firth) 7.5-325 mg Tab 1-2 TAB PO Q6H PRN PAIN #90 Ref 0 TAB Continued Medications: Clonazepam (Clonazepam) 1 Mg Tab 1 MG PO TID #[address] Ref [address] (Cymbalta DR) 60 Mg Capdr 60 MG PO DAILY #30 Ref 0 CAP Folic Acid (Folate) 1 Mg Tab 1 MG PO [id number] Nutritional Supplement Ref 0 TAB Levetiracetam (Keppra) 500 Mg Tab 500 MG PO BID Control Seizures #60 Ref 0 TAB Methotrexate Inj (Otrexup Inj) 7.5 Mg/0.4 Ml Inj 2.5 MG IM WEEKLY ON THURSDAYS Montelukast (Singulair) 10 Mg Tab 10 MG PO DAILY #30 Ref 0 TAB Multiple Vitamin (Multi Vitamin) 1 Tab Tab 1 TAB PO DAILY TAB Omeprazole (Omeprazole) 20 Mg Tab 20 MG PO BID #30 Ref 0 TAB Propranolol (Propranolol) 20 Mg Tab 20 MG PO BID #60 Ref 0 TAB Zolpidem (Ambien) 10 Mg Tab 10 MG PO HS PRN INSOMNIA Ref 0 TAB Additional Information Patient examined. Assessment and plan formulated with Estephania Vora PA-C. I agree with the above. Estephania Vora November 19, 2016 10:54 Ranulfo Lima DO November 22, 2016 22:39
--- NOTE | 2016-11-19 11:56 | HHI.DS ---
Discharge Summary Admission Date November 15, 2016 at 22:21 Discharge Date: November 19, 2016 Admitting Diagnosis Fall; L Distal Radius Fx, L Intertrochanteric Fx (1) Distal radius fracture, left (2) Intertrochanteric fracture of left hip Brief History S/P Trauma: Fall CBC/BMP: 11/19/16 0714 11/19/16 0714 Significant Findings Laboratory Tests Test 11/17/16 11/18/16 11/19/16 06:28 06:56 07:14 Red Blood Count 3.27 MIL/MM3 3.03 MIL/MM3 2.83 MIL/MM3 (4.00-5.30) (4.00-5.30) (4.00-5.30) Hemoglobin 9.0 GM/DL 8.4 GM/DL 7.8 GM/DL (11.6-15.3) (11.6-15.3) (11.6-15.3) Hematocrit 27.9 % 25.5 % 24.2 % (35.0-46.0) (35.0-46.0) (35.0-46.0) Red Cell Distribution Width 19.7 % 20.0 % 19.9 % (11.6-17.2) (11.6-17.2) (11.6-17.2) Creatinine 0.47 MG/DL 0.45 MG/DL 0.47 MG/DL (0.50-1.00) (0.50-1.00) (0.50-1.00) Random Glucose 107 MG/DL (74-106) Calcium Level 8.3 MG/DL 8.4 MG/DL (8.5-10.1) (8.5-10.1) Imaging Last Impressions Wrist X-Ray 11/16/16 0000 Signed Impressions: Service Date/Time: Wednesday, November 16, 2016 11:43 - CONCLUSION: Intraoperative views showing hardware in the distal radius. Jere Gonsales MD Hip X-Ray 11/16/16 0000 Signed Impressions: Service Date/Time: Wednesday, November 16, 2016 10:27 - CONCLUSION: Intraoperative views showing left hip screw in place. Jere Gonsales MD Pelvis X-Ray 11/15/16 2140 Signed Impressions: Service Date/Time: Tuesday, November 15, 2016 21:23 - CONCLUSION: Intact pelvis. Aman Avendano MD Chest X-Ray 11/15/16 2140 Signed Impressions: Service Date/Time: Tuesday, November 15, 2016 21:23 - CONCLUSION: No evidence of acute cardiopulmonary disease. Aman Avendano MD Femur X-Ray 11/15/16 0000 Signed Impressions: Service Date/Time: Tuesday, November 15, 2016 21:23 - CONCLUSION: Comminuted minimally displaced intertrochanteric fracture. Aman Avendano MD Elbow X-Ray 11/15/16 0000 Signed Impressions: Service Date/Time: Tuesday, November 15, 2016 21:23 - CONCLUSION: Nondisplaced fracture of the distal humerus not excludable. Dedicated complete elbow x-ray series recommended when clinically feasible. Aman Avendano MD PE at Discharge GENERAL: 70 year female OOB in chair. SKIN: Warm and dry. HEAD: Normocephalic. NECK: Trachea midline. No JVD. CARDIOVASCULAR: Regular rate and rhythm. RESPIRATORY: Lungs are clear to auscultation. Breath sounds equal bilaterally. No distress or dyspnea. GASTROINTESTINAL: BS + x 4 quads. Abdomen soft, non-tender, nondistended. MUSCULOSKELETAL: Extremities without cyanosis, or edema. LEFT arm soft splint and sling in place. MAEW. NEUROLOGICAL: Awake and alert. Normal speech. Hospital Course [place]: 62 year old female who sustained a fall from a step-stool of approximately 2 feet, landing on her left side. PMHx: Palpitations, HTN, insomnia, anemia, Smoker, arthritis, gastric bypass. INJURIES: Left radius fracture Left femur fracture Procedures: 11/15: Closed reduction of distal radius in ED 11/16: ORIF left radius; ORIF IM nail left femur Consults: Orthopedics. Hospitalist. Diet: Regular diet, Tolerating. Pulmonary: IS, encouraged home use Pain Management: [place]. Pain controlled Activity: OOB. PT and OT evaluated, recommend rehab. (NWB DUSTY, WBEDGARD LLE) GI prophylaxis: Protonix IV Bowel regimen: Lexie-colace and MOM. Lactulose. Patient reports + BM DVT prophylaxis: SCDs, Lovenox - LEFT radius fracture, LEFT femur fracture Orthopedics cleared for discharge, F/U as outpatient 11/15: Closed reduction of distal radius in ED 11/16 ORIF left radius; ORIF IM nail left femur Daily dressing change to LEFT hip with primapore. Maintain LEFT arm splint Pain control - [place] Rehab placement- continue PT/OT MICKEY MONTANO, WBEDGARD BRIDGES Follow-up with PCP as outpatient Plan of care discussed with patient at bedside. Patient is clear from trauma surgery standpoint to safely discharge to inpatient rehab. Pt Condition on Discharge: Stable Discharge Disposition: Rehab Inpatient Discharge Instructions DIET: Follow Instructions for: Heart Healthy Diet Activities you can perform: See Additionl Instruction Activities to Avoid: Strenuous Activity Other Activity Instructions: MICKEY MONTANO; WBAT LLE Lazaro Erwin November 19, 2016 11:56
[2016-11-19 12:00] VITALS: BP 109/68; PULSE 67; RESP 18; TEMP 98.5; O2SAT 95
[2016-11-19] MEDS: FOLIC ACID 1 MG TAB PO SCH (12:00)
[2016-11-19] MEDS: ENOXAPARIN SODIUM 30 MG/0.3 ML SYRINGE SQ SCH (12:00)
[2016-11-19 16:00] VITALS: BP 110/63; PULSE 67; RESP 18; TEMP 98; O2SAT 96
[2016-11-21] MEDS ORDERED: METHOTREXATE IM SCH (09:00)
[2016-11-27] MEDS ORDERED: COMMODE 3-IN-11 MIS (15:19)
[2016-11-27] MEDS ORDERED: WHEEMIS3 (15:19)
[2016-11-27] MEDS ORDERED: WALKER/FOLDING1 MIS (15:45)
[2016-12-03] MEDS ORDERED: ACET1TAB86 PO (08:13)
[2016-12-03] MEDS ORDERED: AMBI10TA PO (08:13)
[2016-12-03] MEDS ORDERED: PANT20 PO (08:13)
[2016-12-03] MEDS ORDERED: PROP20TA3 PO (08:13)
[2016-12-03] MEDS ORDERED: MONT10TA2 PO (08:13)
[2016-12-03] MEDS ORDERED: HYDR-3583 PO (08:13)
[2016-12-03] MEDS ORDERED: GNP100TA3 PO (08:13)
[2016-12-03] MEDS ORDERED: LEVE500 PO (08:13)
[2016-12-03] MEDS ORDERED: CLON1TAB PO (08:13)
[2016-12-03] MEDS ORDERED: LIDOCAINE 5% T-DERMAL (08:13)
[2016-12-03] MEDS ORDERED: ASPI325T PO (08:13)
[2016-12-03] MEDS ORDERED: CYMB60CA PO (08:13)
== END 2016-11-19 17:07 | DRG 481 ==
LOC: NEPI 21:29 → EDBD 22:21 → NEDA 22:21 → N06B 11-16 00:44 → N06A 11-16 16:20
PROVIDERS: ADMIT Hospitalist; ATTEND Hospitalist
PROC: 0PSJXZZ Reposition Left Radius, External Approach (ICD-10-PCS; 2016-11-15)
PROC: 2W6 Placement, Anatomical Regions, Traction (ICD-10-PCS; 2016-11-15)
PROC: 0QS706Z Reposition Left Upper Femur with Intramedullary Internal Fixation Device, Open Approach (ICD-10-PCS; principal; 2016-11-16 09:52)
PROC: 0PSJ04Z Reposition Left Radius with Internal Fixation Device, Open Approach (ICD-10-PCS; 2016-11-16 09:52)
DX: S72.142A Displaced intertrochanteric fracture of left femur, initial encounter for closed fracture (principal); S52.502A Unspecified fracture of the lower end of left radius, initial encounter for closed fracture; I10 Essential (primary) hypertension; D64.9 Anemia, unspecified; F17.210 Nicotine dependence, cigarettes, uncomplicated; G40.909 Epilepsy, unspecified, not intractable, without status epilepticus; M06.9 Rheumatoid arthritis, unspecified; G47.00 Insomnia, unspecified; W17.89XA Other fall from one level to another, initial encounter; Y92.009 Unspecified place in unspecified non-institutional (private) residence as the place of occurrence of the external cause; Z98.84 Bariatric surgery status
CPT/HCPCS: 25605; 51702; 71010; 72170; 73100; 73502; 73552; 76000; 80048; 82435; 82565; 82947; 84132; 84295; 84520; 85025; 85027; 85610; 85730; 86850; 86900; 86901; 93005; 94150; 96374; 99152; 99291; C1713; C9113; G0390; J0690; J1170; J1580; J1650; J2270; J2405; J2710; J3010; J3370; J7050; L1830